=== PATIENT | female | born 1965 | race Caucasian/White ===

== ENCOUNTER → 2016-03-11 | Outpatient (CLI) | payer OTHER ==
[~2016-03-11] MED LIST: ALBUAER3 INH; BIOT10TA PO; CALCCAP PO; FISH1000 PO; FLUTI44I INH; MULT-120 PO; PROBCAP11 PO; VITA500T17 PO; VITATAB11 PO; [UNRECOGNIZED DRUG - CODE]
[2016-03-11 15:04] LABS: BLOOD, URINE NEG (NEG); COMMENT (UR) CULT NOT INDICATED; CULTURE IF INDICATED CULT NOT INDICATED; GLUCOSE,URINE NEG (NEG); KETONE, URINE 10 mg/dL (NEG); MUCUS URINE FEW /lpf (OCC); NITRITE,URINE NEG (NEG); SQUAMOUS EPITHELIAL CELL URINE <1 /hpf (0-5); URINE COLOR YELLOW (YELLW/STRAW)
[2016-03-11 15:09] LABS: AUTOMATED NEUTROPHIL # 4.5 TH/MM3 (1.8-7.7); BASOPHIL % 0.7 % (0.0-2.0); EOSINOPHIL # 0.2 TH/MM3 (0-0.4); EOSINOPHIL % 2.4 % (0.0-4.0); HEMO FLAGS DIFF FINAL; LYMPH % 25.7 % (9.0-44.0); LYMPHOCYTE # 1.8 TH/MM3 (1.0-4.8); MEAN CELL VOLUME 93.2 FL (80.0-100.0); MEAN CORPUSCULAR HEMOGLOBIN 31.1 PG (27.0-34.0); MEAN CORPUSCULAR HGB CONC 33.4 % (32.0-36.0); MONO % 5.8 % (0.0-8.0); NEUT % 65.4 % (16.0-70.0); PLATELET COUNT 242 TH/MM3 (150-450); RED BLOOD COUNT 4.73 MIL/MM3 (4.00-5.30); RED CELL DISTRIBUTION WIDTH 12.9 % (11.6-17.2); WHITE BLOOD COUNT 6.8 TH/MM3 (4.0-11.0)
[2016-03-11 15:25] LABS: BETA HCG QUANT LESS THAN 1 MIU/ML (0-5)
--- NOTE | 2016-03-12 13:51 | EKG ---
Date Performed: 03/11/2016 Time Performed: 13:49:45 PTAGE: 50 years EKG: Sinus rhythm SEPTAL MYOCARDIAL INFARCTION, PROBABLY OLD NONSPECIFIC ST ABNORMALITIES Since previous tracing, no s ignificant change noted ABNORMAL ECG PREVIOUS TRACING : 12/30/2005 13.09.43 DOCTOR: Hans Montilla Interpretating Date/Time 03/12/2016 13:51:02
== END ==
LOC: CPRE 12:45
PROVIDERS: ATTEND Obstetrics & Gynecology
DX: Z01.810 Encounter for preprocedural cardiovascular examination (principal); Z01.812 Encounter for preprocedural laboratory examination; D25.9 Leiomyoma of uterus, unspecified; N92.0 Excessive and frequent menstruation with regular cycle; N94.6 Dysmenorrhea, unspecified; R94.31 Abnormal electrocardiogram [ECG] [EKG]
CPT/HCPCS: 36415; 81001; 84702; 85025; 93005

== ENCOUNTER 2016-03-13 10:41 | Observation (INO) | payer OTHER ==
--- NOTE | 2016-03-12 11:03 | MH ---
cc: JIM DUARTE M.D. DATE OF ADMISSION: 03/13/2016 ADMISSION DIAGNOSIS Menorrhagia, dysmenorrhea with enlarging fibroids. HISTORY OF PRESENT ILLNESS The patient is a 50-year-old single white female, para 0, who returned for annual visit on 12/25/2015 and despite being on OCPs had increasing menstrual flow and menstrual pain. Her Pap smear was normal. Her ultrasound showed three fibroids which were normal. Endometrium was normal and she is now admitted for hysterectomy. PAST MEDICAL HISTORY PREVIOUS SURGERY 1. She had laparoscopy followed by abdominal myomectomy in 2005. 2. She had a LEEP procedure for mild dysplasia in 2006. MEDICATIONS OCPs. ALLERGIES ASPIRIN. TRANSFUSIONS None. SOCIAL HISTORY She is employed at the [employer] in the [employer]. Single. Alcohol occasional. Tobacco none. Drugs none. FAMILY HISTORY Noncontributory. PHYSICAL EXAMINATION GENERAL: This is a normal, well-nourished, well-developed female. VITAL SIGNS: Stable. HEENT: Exam is normal. CHEST: Clear. Regular rate. BREASTS: The breasts are symmetrical. ABDOMEN: Benign. PELVIC EXAM: Normal external genitalia and BUS. Vagina is normal. Cervix normal. Uterus enlarged, about 14 weeks' size. ASSESSMENT As above. PLAN She is now admitted for laparoscopy, probable LASH procedure with ovarian and cervical sparing if normal. While in the office I explained the procedures, the risks, benefits and complications and the patient would like to proceed. MD ESEQUIEL Jaramillo/SSB /8:04 AM /10:55 AM
[~2016-03-13] VITALS: Ht 165.1 cm; Wt 58.1 kg
[2016-03-13] MEDS ORDERED: SODIUM CHLORID 0.9% 500 ML IV SCH (11:00)
[2016-03-13] MEDS ORDERED: LACTATED RINGER'S 1000 ML IV SCH (11:00)
[2016-03-13] MEDS ORDERED: METOPROLOL TARTRATE 25 MG TAB PO PRN (11:15)
[2016-03-13] MEDS ORDERED: ceFAZolin 2 GM PREMIX 50 ML IV SCH (11:15)
[2016-03-13] MEDS ORDERED: INSULIN HUMAN REGULAR 1,000 UNITS/10 ML VIAL SQ PRN (11:15)
[2016-03-13] MEDS ORDERED: ACETAMINOPHEN 1000 MG/100 ML VIAL IV SCH (11:30)
[2016-03-13] MEDS ORDERED: BUPIVACAINE LIPOSOME PF 1.3% 20 ML VIAL ONE (11:43)
[2016-03-13 11:49] VITALS: BP 119/75; PULSE 90; RESP 16; TEMP 98.2; O2SAT 99
[2016-03-13] MEDS ORDERED: LACTATED RINGER'S 1000 ML INJ 1,000 ML IV ONE (12:00)
[2016-03-13] MEDS ORDERED: PROPOFOL 200 MG/20 ML AMP IV ONE (12:00)
[2016-03-13] MEDS ORDERED: ONDANSETRON HCL 4 MG/2 ML VIAL ONE (12:21)
[2016-03-13] MEDS ORDERED: HYDROmorphone HCL PF 2 MG/ML VIAL ONE (12:21)
[2016-03-13] MEDS ORDERED: fentaNYL CITRATE 250 MCG/5 ML AMP ONE (12:21)
[2016-03-13] MEDS ORDERED: KETOROLAC TROMETHAMINE 60 MG/2 ML (IM) VIAL IM ONE (12:21)
[2016-03-13] MEDS ORDERED: MIDAZOLAM HCL 2 MG/2 ML VIAL ONE (12:29)
[2016-03-13] MEDS ORDERED: HYDROmorphone HCL PF 1 MG/ML VIAL IV PRN (14:15)
[2016-03-13] MEDS ORDERED: ZOLPIDEM TARTRATE 5 MG TAB PO PRN (14:15)
[2016-03-13] MEDS ORDERED: PROMETHAZINE INJ 25 MG/ML VIAL IM PRN (14:15)
[2016-03-13] MEDS ORDERED: ONDANSETRON ODT 4 MG TAB PO PRN (14:15)
[2016-03-13] MEDS ORDERED: ONDANSETRON HCL 4 MG/2 ML VIAL IV PRN (14:15)
[2016-03-13] MEDS: ACETAMINOPHEN 1000 MG/100 ML VIAL IV SCH ×2 (14:15→21:48)
[2016-03-13] MEDS ORDERED: SODIUM CHLORIDE 0.9% FLUSH 5 ML FLUSH FLUSH PRN (14:15)
[2016-03-13] MEDS ORDERED: PROMETHAZINE HCL 25 MG TAB PO PRN (14:15)
[2016-03-13] MEDS ORDERED: diphenhydrAMINE HCL 25 MG CAP PO PRN (14:15)
[2016-03-13] MEDS: DOCUSATE SODIUM 100 MG CAP PO SCH ×2 (15:00→21:41)
[2016-03-13] MEDS: D5-1/2 NS + KCL 20 MEQ INJ 1,000 ML IV SCH ×2 (15:00→21:49)
[2016-03-13] MEDS: KETOROLAC TROMETHAMINE 30 MG/ML (IVP) VIAL IVP SCH ×2 (15:00→21:42)
[2016-03-13] MEDS ORDERED: DO NOT ADM ANY ANTICOAGULANT DRUGS XX PRN (15:00)
[2016-03-13 16:41] VITALS: BP 117/72; PULSE 75; RESP 20; TEMP 96.1; O2SAT 100
[2016-03-13 20:00] VITALS: BP 123/57; PULSE 86; RESP 16; TEMP 97.9; O2SAT 96
[2016-03-13] MEDS: SODIUM CHLORIDE 0.9% FLUSH 5 ML FLUSH FLUSH SCH (21:42)
[2016-03-13 21:57] LABS: HEMATOCRIT 40.9 % (35.0-46.0); REVIEW FLAG FINAL
[2016-03-14 00:10] VITALS: BP 125/73; PULSE 67; RESP 16; TEMP 96.7; O2SAT 99
[2016-03-14] MEDS: KETOROLAC TROMETHAMINE 30 MG/ML (IVP) VIAL IVP SCH ×2 (02:43→08:41)
[2016-03-14 04:00] VITALS: BP 122/73; PULSE 64; RESP 16; TEMP 96.5; O2SAT 100
[2016-03-14 05:48] LABS: AUTOMATED NEUTROPHIL # 7.3 TH/MM3 (1.8-7.7); BASOPHIL # 0.1 TH/MM3 (0-0.2); BASOPHIL % 0.5 % (0.0-2.0); EOSINOPHIL # 0.1 TH/MM3 (0-0.4); EOSINOPHIL % 0.6 % (0.0-4.0); HEMO FLAGS DIFF FINAL; LYMPH % 13.7 % (9.0-44.0); LYMPHOCYTE # 1.3 TH/MM3 (1.0-4.8); MEAN CELL VOLUME 94.1 FL (80.0-100.0); MEAN CORPUSCULAR HEMOGLOBIN 31.5 PG (27.0-34.0); MEAN CORPUSCULAR HGB CONC 33.5 % (32.0-36.0); MONO % 8.1 % (0.0-8.0); NEUT % 77.1 % (16.0-70.0); PLATELET COUNT 221 TH/MM3 (150-450); RED BLOOD COUNT 4.04 MIL/MM3 (4.00-5.30); WHITE BLOOD COUNT 9.5 TH/MM3 (4.0-11.0)
[2016-03-14] MEDS: ACETAMINOPHEN 1000 MG/100 ML VIAL IV SCH (05:52)
[2016-03-14 05:54] LABS: BICARBONATE 22.6 MEQ/L (21.0-32.0); POTASSIUM 4.1 MEQ/L (3.5-5.1)
[2016-03-14] MEDS: D5-1/2 NS + KCL 20 MEQ INJ 1,000 ML IV SCH (07:00)
[2016-03-14 08:00] VITALS: BP 125/78; PULSE 78; RESP 20; TEMP 96.7; O2SAT 100
[2016-03-14] MEDS: DOCUSATE SODIUM 100 MG CAP PO SCH (08:40)
[2016-03-14] MEDS: SODIUM CHLORIDE 0.9% FLUSH 5 ML FLUSH FLUSH SCH (08:41)
[2016-03-14 11:22] VITALS: RESP 16
--- NOTE | 2016-03-19 17:33 | MP ---
cc: JIM DUARTE DATE OF SURGERY: 03/13/2016 PREOPERATIVE DIAGNOSIS Menorrhagia, dysmenorrhea, secondary to the uterine fibroids. POSTOPERATIVE DIAGNOSIS Menorrhagia, dysmenorrhea, secondary to the uterine fibroids. PROCEDURE LASH, bilateral salpingectomy. ANESTHESIA General endotracheal. SURGEON Jim Duarte MD TOOL DESIGN CHECKER Violeta Oates, HE ESTIMATED BLOOD LOSS 50 cc. FLUIDS 900 cc crystalloid. OBJECTIVE FINDINGS Following the induction of adequate general endotracheal anesthesia, the patient was prepped and draped supine on the operating table in the dorsal lithotomy position in the usual sterile fashion with the bladder being drained via Lassiter catheterization. The abdomen was opened through a cm curving infraumbilical incision using a knife to cut down through skin to the fascia. The fascia was opened transversely. The rectus muscle was split in the midline and the peritoneum opened sharply. A mini GelPort was placed, the laparoscope inserted. A 5 port was placed in the left lower quadrant and right lower quadrant. The pelvic contents revealed the uterus about 12-14 weeks' size, multiple fibroids, normal ovaries, normal tubes, normal cul-de-sacs, normal liver edge, normal appendix. Working first on the left a Harmonic scalpel was used to take the left mesosalpinx, left round ligament, left broad ligament, left side of the bladder flap and uterine vessels, and the same on the right. The Harmonic scalpel was now used to amputate the fundus from the cervix. The pouch was inserted, uterus and tubes placed in the pouch and the pouch exteriorized, with a scalpel. the uterus was decompressed in the bag and extracted intact for permanent study. Irrigation was now performed. A low pressure test was done and there was no bleeding. The operative sites were now coated with Evicel. The GelPort was removed. The peritoneum was sutured with a running 2-0 Vicryl, the fascia with a running locking stitch of 0 Vicryl, corner to midline and tied, subcu closed with 3-0 Vicryl and the skin with a running subcuticular 3-0 Monocryl. The scope was now reinserted through the lower ports and used to inspect the GelPort site which was well-closed. The bowel was inspected and there was no bleeding. The ureters showed good peristalsis. The scope was now removed. The ports were removed and sutured with 3-0 Monocryl. Sterile dressing was applied. All counts were correct. The patient was awakened and taken to the recovery room in good condition. MD ESEQUIEL Jaramillo/JUAN /9:07 PM /5:21 PM MTDAnna
== END 2016-03-14 12:06 | disposition home or self-care (01) ==
LOC: HSDC 10:41 → HSDI 14:08 → HOCA 16:36
PROVIDERS: ADMIT Obstetrics & Gynecology; ATTEND Obstetrics & Gynecology
DX: N92.0 Excessive and frequent menstruation with regular cycle (principal); N94.6 Dysmenorrhea, unspecified; D25.9 Leiomyoma of uterus, unspecified
CPT/HCPCS: 00840; 01991; 58542; 64425; 80048; 85014; 85018; 85025; 88307; C9290; G0378; J0131; J0690; J1885; J2250; J2405; J3010; J3480; J7120; J1170